=== PATIENT | male | born 1965 | race Caucasian/White ===

== ENCOUNTER 2021-08-10 21:20 | Observation (INO) | payer OTHER ==
[~2021-08-10] VITALS: Ht 170.2 cm; Wt 76.7 kg
--- NOTE | ~2021-08-10 | PROC ---
[address] [address] PROCEDURE REPORT Name: RAJ ADAMS Room: [address] M.R.#: [id number] Admission: 08/11/21 Attend Phys: Yamel Cortes MD Discharge: 08/12/21 Date of : 63 Report #: [id number] THIS REPORT FOR: cc: Giorgio Loomis Gregory DO [facility],Medical Records Staff ~ For GI report, please see the Provation report in Perceptive 7 content. By: 0659Medical Records Staff NICHOLE /ALEJANDRA
--- NOTE | ~2021-08-10 | CON ---
[address] [address] CONSULTATION Name: ANGIERAJ Room: [address] Neville#: [id number] Admission: 08/11/21 Attend Phys: Yamel Cortes MD Discharge: Date of : 63 Report #: [id number] THIS REPORT FOR: cc: Giorgio Loomis Gregory DO Namin, Farid M. MD ~ DATE OF CONSULTATION: 08/11/2021 HISTORY OF PRESENT ILLNESS: This is a 56-year-old male with history of weight loss, abdominal pain, chronic constipation, persistent reflux, even though he is on double dose of Nexium, who has had multiple endoscopic evaluation initially by Dr. Cuba 6 months ago at [facility]. He reports that his upper endoscopy was significant for gastric ulcers. He also reports that his baseline weight was 180 and it dropped to 140 before he went and got evaluated at [facility]. He currently weighs 160 pounds, but reports anorexia, nausea, persistent reflux, chronic constipation. The patient reports that he was taking Linzess and MiraLax, but they are not working now. PAST MEDICAL HISTORY: Significant for history of chronic constipation, insomnia, hernia repair, anxiety, gastroesophageal reflux disease, hip replacement. ALLERGIES: No known drug allergy. MEDICATIONS: Please refer to MAR. SOCIAL HISTORY: The patient denies tobaccoism and may occasionally have alcoholic beverage. FAMILY HISTORY: Negative for GI malignancy. PHYSICAL EXAMINATION: VITAL SIGNS: Reveals normal vitals. LUNGS: Clear. CARDIOVASCULAR: Regular. ABDOMEN: Soft, tender to palpation in the epigastric region. Bowel sounds are positive. NEUROLOGIC: The patient is alert and oriented x 3. There is no focal neurologic deficit. LABORATORY DATA: Reveal sodium of 136, potassium 3.7, BUN is 16, creatinine 0.9. Liver functions are within normal limit. WBC 6.9, hemoglobin 13.6 with platelets of 246. IMAGING: CT of abdomen and pelvis obtained yesterday[place] [address] CONSULTATION Name: RAJ ADAMS Room: [address] M.R.#: [id number] Admission: 08/11/21 Attend Phys: Yamel Cortes MD Discharge: Date of : 63 Report #: [id number] sigmoid diverticulosis without diverticulitis. There is scattered small enhancing lesions in the right lobe of the liver, largest measuring 8 mm. This may be significant for small hemangiomas. Nonemergent 3-phase CT followup was recommended. ASSESSMENT AND PLAN: The patient with history of reflux, constipation and weight loss, who has had multiple endoscopic evaluation in the past, reporting that his last upper and lower scope was at [facility] 6 months ago. Since this was significant for ulcers per patient reports and he has persistent reflux on double dose of Nexium. I would consider performing the EGD. He may benefit from motility agents as it seems he has slow motility throughout his GI tract. We will review all his records from and elsewhere and make further recommendation. I will put him on a bowel regimen. We will make further recommendation based on upper GI findings. By: [id number] Mccoy MD /nt
[~2021-08-10 21:20] MED LIST: BENTYL 10 MG CA10 MG PO; BISACODYL10 MG RECTAL; DRIZALMA SPRINK30 MG PO; EFFEXOR 5050 MG/1 T1 PO; FLEXERIL PO; FLOMAX0.4 MG PO; GABAPENTIN100 MG PO; HYDROXYZINE PAM25 M1 PO; MIRALAX119 GM PO; NEXIUM40 MG PO; OMEPRAZOLE20 M1 PO; SENNA8.8 MG/5 M PO; VALIUM5 MG PO; XANAX 0.25 MG0.25 MG PO; ZOFRAN ODT4 MG PO; ZOLPIDEM TARTRA10 MG PO
[2021-08-10 21:26] VITALS: BP 144/94
[2021-08-10 21:58] LABS: ABSOLUTE BASOPHILS 0.1 thou/uL (0.0-0.2); ABSOLUTE NEUTROPHILS 3.5 thou/uL (1.6-8.1); BASOPHILS 0.8 %; HEMOGLOBIN 13.6 gm/dL (14.0-18.0); PLATELET COUNT* 246 thou/uL (150-400)
[2021-08-10 22:00] LABS: ABSOLUTE EOSINOPHILS 0.1 thou/uL (0.0-0.7); ABSOLUTE LYMPHOCYTES 2.6 thou/uL (0.8-5.3); ABSOLUTE MONOCYTES 0.7 thou/uL (0.0-1.2); EOSINOPHILS 0.9 %; HEMATOCRIT 38.9 % (42.0-52.0); MCV 91.3 fL (80.0-100.0); MONOCYTES 9.9 %; MPV 8.9 fl. (7.2-11.1); NUCLEATED RBCS 0 /100WBC; POLYS 50.4 %; RBC 4.25 mil/uL (4.50-6.00); WBC 6.9 thou/uL (4.0-11.0)
[2021-08-10 22:09] LABS: CALCIUM 8.7 mg/dL (8.5-10.1); CREATININE 0.9 mg/dL (0.6-1.3); INR 1.2; POTASSIUM 3.7 mmol/L (3.5-5.1)
[2021-08-10 22:13] LABS: ALBUMIN 3.7 g/dL (3.4-5.0); MAGNESIUM 1.9 mg/dL (1.8-2.4); TOTAL BILIRUBIN 0.5 mg/dL (<0.1-1.0); TOTAL PROTEIN 6.8 g/dL (6.4-8.2)
[2021-08-10] MEDS ORDERED: REMERON15 M2 (22:17)
[2021-08-10 22:22] LABS: URINE BILIRUBIN NEGATIVE (Negative); URINE BLOOD TRACE (Negative); URINE CLARITY CLEAR; URINE COLOR YELLOW; URINE GLUCOSE-RANDOM NEGATIVE (Negative); URINE KETONES NEGATIVE (Negative); URINE LEUKOCYTES-REFLEX NEGATIVE (Negative); URINE NITRITE-REFLEX NEGATIVE (Negative); URINE PROTEIN NEGATIVE (Negative); URINE SPECIFIC GRAVITY 1.015 (1.005-1.030); URINE UROBILINOGEN 0.2 E.U./dl (0.2-1.0)
[2021-08-11 02:40] VITALS: BP 136/80
[2021-08-11 03:00] VITALS: BP 131/80
--- NOTE | 2021-08-11 03:00 | NUR ---
PT ADMITTED TO FLOOR PER CART ACCOMPANIED BY ER STAFF WITH BELONGINGS. ORIENTED TO ROOM AND CALL LITE. HISTORY OBTAIND AND ASSESSMENT PERFORMED, SEE ADMIT NOTES. PT CO ABD PAIN 5/10, DENIES NEED FOR PAIN MED OR NAUSEA. L HAND IVF INFUSING PER PUMP. NPO. WILL CONTINUE TO MONITOR AND PROVIDE CARES NEEDED.
[2021-08-11] MEDS ORDERED: AMBIEN5 MG PO (03:22)
--- NOTE | 2021-08-11 07:15 | NUR ---
PT HAS SLEPT WELL SINCE ADMISSION TO FLOOR. L HAND IVF INFUSING PER PUMP WITHOUT DIFFICULTY. NPO. ABLE TO USE CALL LITE AND MAKE NEEDS KNOWN. GI CONSULT TO BE OBTAINED. BED ALARM ON OVERNIGHT FOR SAFETY.
[2021-08-11 08:00] VITALS: BP 130/80
--- NOTE | 2021-08-11 10:24 | NUR ---
CM ASSESSMENT ASSESSMENT COMPLETED WITH PT WHO WAS ALERT AND ORIENTED. PT INDICATED HE PRIMARILY LIVES ALONE, BUT THAT HIS DAUGHTER IS THERE 50% OF THE TIME. 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 PT HAS NO HOME HEALTH, SKILLED,OR ACUTE REHAB HX. PT REPORTS OUTPATIENT PELVIC FLOOR THERAPY AT OVER THE LAST 4 MONTHS. CM TO FOLLOW FOR DC PLANNING NEEDS.
--- NOTE | 2021-08-11 13:52 | EKG ---
[place] [address] ELECTROCARDIOGRAM REPORT Name: EMERALD ADAMSNTINO DONTE Room: [address] M.R.#: [id number] Admission: 08/11/21 Attend Phys: Yamel Cortes, Discharge: Date of : 63 Date of Service: 08/10/212123 Report #: [id number] THIS REPORT FOR: //name// [facility] ED Test Date: 2021-08-10 Test Time: 21:24:08 Pat Name: RAJ ADAMS Department: Room: 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[place] : 1965 Requested By: Latrice Plunkett Order Number: [id number] MD: Alex Andrade Measurements Intervals Outlook Rate: 86 P: 54 ND: 145 QRS: 60 QRSD: 104 T: 22 QT: 350 QTc: 419 Interpretive Statements Sinus rhythm High ST segment takeoff over the anterior precordium most compatible with early repolarization and a normal variant Compared to ECG 05/14/2016 09:57:03 No significant interval change Electronically Signed On 08-11-2021 13:52:42 BATTERY SERVICE TECHNICIAN by Alex Andrade [email or web address] <ELECTRONICALLY SIGNED> By: Alex Andrade MD, FACC 08/11/21 1352 23 23 Alex Andrade MD, [facility] /EPI
[2021-08-11 16:08] VITALS: BP 121/71
--- NOTE | 2021-08-11 17:05 | NUR ---
PATIENT RESTING IN BED. IV TO LEFT HAND WITH NORMAL SALINE INFUSING AT 100MLS/HR. ALL QUESTIONS AND CONCERNS ADDRESSED
[2021-08-11 21:15] VITALS: BP 127/78
[2021-08-12 08:00] VITALS: BP 116/81
[2021-08-12 16:00] VITALS: BP 128/82
--- NOTE | 2021-08-12 18:25 | NUR ---
PATIENT RESTING IN BED. IV TO LEFT HAND, SALINE LOCKED. EGD DONE TODAY. ALL QUESTIONS AND CONCERNS ADDRESSED.
--- NOTE | 2021-08-12 18:59 | NUR ---
CM FOLLOWUP PT NOT YET MED CLEAR. PT PENDING PATHOLOGY RESULTS FOLLOWING HIS SCOPE. CM TO FOLLOW.
[2021-08-12] MEDS ORDERED: ZENPEP DR 5,001 EAC1 PO (19:09)
[2021-08-12] MEDS ORDERED: SENNA8.6 MG PO (19:09)
[2021-08-12] MEDS ORDERED: HYDROCORTISONE30 G9 RECTAL (19:09)
[2021-08-12] MEDS ORDERED: ERYTHROMYCIN250 M2 PO (19:09)
[2021-08-12] MEDS ORDERED: REGLAN 5 MG TAB5 MG PO (19:10)
[2021-08-12] MEDS ORDERED: PROTONIX40 M4 PO (19:12)
[2021-08-12 19:21] VITALS: BP 128/82
--- NOTE | 2021-08-16 19:06 | PATH ---
[address] [address] PATHOLOGY RPT PROCEDURE Name: RAJ ADAMS Room: [address] Isabella Lozada#: [id number] Admission: 08/11/21 Date of : 63 Discharge: 08/12/21 Report #: [id number] Path Case #: [id number] [facility] Accession Number: [id number] . 01 Material submitted: . esophagus - DISTAL ESOPHAGUS. Modifiers: distal . 01 Clinical history: . RULE OUT CHAUDHARI'S . 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 - Negative for dysplasia and malignancy. (MLK:enrike; 08/16/2021) QTP 08/16/2021 [facility]2 Local . 02 Electronically signed: . Lisa Villa MD, Pathologist NPI- [id number] . 01 Gross description: . Received in formalin labeled "Raj, Marshal, distal esophagus rule out Chaudhari's" are 2 henderson-brown soft tissue fragments measuring in aggregate 0.5 x 0.3 x 0.1 cm. The specimen is submitted entirely in A1. ([facility]; 08/14/2021) [facility] 08/14/2021 1154 Local . 02 Pathologist provided ICD-10: K22.70, K20.90 . 02 CPT . 664913 Specimen Comment: A courtesy copy of this report has been sent to [phone] Specimen Comment: Report sent to Performed at: 01 [facility] [address] [id number] MD Josesito Whitaker MD Phone: [phone] Performed at: 02 [facility] [address] [place] [id number] MD Calin Coelho MD Phone: [phone]
== END 2021-08-12 19:45 | disposition home or self-care (01) ==
LOC: M.ERS 21:20 → M.TBA-ER 08-11 00:52 → M.ERS 08-11 00:52 → M.TBA-ER 08-11 00:52 → M.3W 08-11 00:52 → M.ERS 08-11 02:40 → M.3W 08-11 03:07
PROVIDERS: Emergency Medicine; ADMIT Internal Medicine; ATTEND Internal Medicine
DX: K44.9 Diaphragmatic hernia without obstruction or gangrene (principal); K22.89 Other specified disease of esophagus; K27.9 Peptic ulcer, site unspecified, unspecified as acute or chronic, without hemorrhage or perforation; R11.2 Nausea with vomiting, unspecified; R63.4 Abnormal weight loss; Z20.822 Contact with and (suspected) exposure to COVID-19; R79.89 Other specified abnormal findings of blood chemistry; Z79.899 Other long term (current) drug therapy